=== PATIENT | female | born 1930 | race Caucasian/White ===

== ENCOUNTER 2017-05-24 11:35 | Observation (INO) | payer OTHER ==
[~2017-05-24] VITALS: Ht 152.4 cm; Wt 92.6 kg
[~2017-05-24 11:35] MED LIST: AMLODIPINE BESY10 MG PO; ASPIR 8181 M1 PO; BENADRYL25 MG PO; CALCIUM 500 MG1 EAC1 PO; CIPROFLOXACIN250 MG PO; COLACE100 MG PO; COUMADIN1 MG PO; CYCLOBENZAPRINE10 MG PO; DOK PLUS TABLE1 EACH PO; ECOTRIN325 MG PO; ELIQUIS2.5 MG PO; EXTRA STRENGTH500 M1 PO; FIBER LAXATIVE500 MG PO; FIBER500 MG PO; FISH OIL300 MG PO; HYDROCHLOROTH12.5 M3 PO; HYDROCHLOROTHIA25 MG PO; HYZAAR 100-21 TABLET PO; IRON325 M1 PO; LO-DOSE ASPIRIN81 M1 PO; LOSARTAN POTAS100 MG PO; MAGNESIUM OXID500 MG PO; ROPINIROLE HCL3 MG PO; SENNA-TIME S T1 EACH PO; SERTRALINE HCL25 MG PO; SIMVASTATIN80 MG PO; STOOL SOFTENER100 M1 PO; TRAMADOL HCL50 MG PO; VALIUM5 MG PO; VITAMIN D3; VITAMIN D31000 UNI2 PO; VITAMIN D400 UNIT PO; ZOCOR80 MG PO; ZOLOFT50 MG PO
[2017-05-24 12:30] LABS: MCH 30.1 PG (29.0-34.0); MCHC 32.4 G/DL (30.0-36.0); MCV 93.2 FL (83-99); PLATELET COUNT 200 K/uL (156-360); RBC DIS.WIDTH-SD 45.2 % (39-53); RED BLOOD COUNT 3.65 M/uL (3.80-5.20); WHITE BLOOD COUNT 9.1 K/uL (4.1-10.2)
[2017-05-24 12:43] LABS: CHLORIDE 103 mEq/L (99-109); POTASSIUM 4.9 mEq/L (3.7-5.4); SODIUM 138 mEq/L (136-147)
[2017-05-24 12:45] LABS: GLUCOSE 180 mg/dL (70-99)
[2017-05-24 12:46] LABS: ANION GAP 11 MEQ/L (2-14)
[2017-05-24 12:48] LABS: GFR ESTIMATE (CALCULATED) 41 mL/min/
[2017-05-24 12:49] LABS: UREA NITROGEN (BUN) 84 mg/dL (9-23)
[2017-05-24 13:22] LABS: PROTHROMBIN TIME 10.6 (9.2-11.2); PTT 23.8 (25-32)
[2017-05-24 13:26] LABS: TOTAL BILIRUBIN 0.6 mg/dL (0.0-1.0)
[2017-05-24 13:27] LABS: ALKALINE PHOSPHATASE 67 IU/L (3-129)
[2017-05-24 13:30] LABS: DIRECT BILIRUBIN 0.2 mg/dL (0.0-0.3)
[2017-05-24 13:31] LABS: LIPASE 12 U/L (1.0-51.0)
[2017-05-24] MEDS ORDERED: LITE COAT ASPI325 M1 PO (16:43)
[2017-05-24] MEDS ORDERED: AMLODIPINE BESY10 MG PO (16:43)
[2017-05-24] MEDS ORDERED: MELATIN3 MG PO (16:44)
[2017-05-24] MEDS ORDERED: VITAMIN D31000 UNI2 PO (16:44)
[2017-05-24] MEDS ORDERED: METAMUCIL POWD798 GM PO (16:45)
[2017-05-24] MEDS ORDERED: NITROSTAT0.4 MG SL (16:45)
[2017-05-24] MEDS ORDERED: FIBER LAXATIV0.52 GM PO (16:45)
[2017-05-24] MEDS ORDERED: FERROUS GLUCON324 MG PO (16:45)
[2017-05-24] MEDS ORDERED: CALCIUM 600 +1 EAC1 PO (16:46)
[2017-05-24] MEDS ORDERED: ROPINIROLE HCL0.5 MG PO (16:46)
[2017-05-24] MEDS ORDERED: BREO ELLIPTA I1 EACH IH (16:46)
[2017-05-24] MEDS ORDERED: COLACE100 MG PO (16:46)
[2017-05-24] MEDS ORDERED: TYLENOL REGULA325 MG PO (16:47)
[2017-05-24] MEDS ORDERED: STRESS-C WITH1 EAC1 PO (16:47)
[2017-05-24 18:09] VITALS: BP 147/70
[2017-05-24 19:45] VITALS: BP 125/58
[2017-05-24 19:50] LABS: HEMATOCRIT 28.7 % (36.0-46.0); MCV 92.9 FL (83-99)
[2017-05-25] VITALS: BP 113/52
[2017-05-25 03:52] VITALS: BP 129/59
[2017-05-25 07:14] VITALS: BP 144/65
[2017-05-25 07:16] LABS: CHLORIDE 110 mEq/L (99-109); SODIUM 141 mEq/L (136-147)
[2017-05-25 07:20] LABS: ANION GAP 7 MEQ/L (2-14); TOTAL BILIRUBIN 0.5 mg/dL (0.0-1.0)
[2017-05-25 07:21] LABS: GLUCOSE 106 mg/dL (70-99)
[2017-05-25 07:22] LABS: ALKALINE PHOSPHATASE 49 IU/L (3-129); GFR ESTIMATE (CALCULATED) 45 mL/min/
[2017-05-25 07:23] LABS: UREA NITROGEN (BUN) 60 mg/dL (9-23)
[2017-05-25 07:48] VITALS: BP 128/63
[2017-05-25 10:21] LABS: BASOPHIL COUNT 0.1 K/uL (0-0.1); EOSINOPHIL (%) 0.8 % (0-5); EOSINOPHIL COUNT 0.1 K/uL (0-0.3); HEMATOCRIT 27.2 % (36.0-46.0); IMMATURE GRANULOCYTE (%) 0.4 % (0.0-0.7); INSTRUMENT ABS NEUTROPHIL CT 5.2 K/uL; LYMPHOCYTE COUNT 1.7 K/uL (1.0-2.8); MCV 93.8 FL (83-99); MEAN PLAT.VOLUME 11.9 uM^3 (9.5-12.4); MONOCYTE (%) 6.2 % (3-12); MONOCYTE COUNT 0.5 K/uL (0-0.8); NEUTROPHIL (%) 68.9 % (45-76); NEUTROPHIL COUNT 5.2 K/uL (1.8-6.4); NRBC (%) 0.4 /100 WBC (0-0); PLATELET COUNT 160 K/uL (156-360); RBC DIS.WIDTH-CV 13.4 % (11.8-14.6); RBC DIS.WIDTH-SD 46.5 % (39-53); WHITE BLOOD COUNT 7.6 K/uL (4.1-10.2)
[2017-05-25 12:05] VITALS: BP 131/68
[2017-05-25 15:36] VITALS: BP 100/59
[2017-05-25] MEDS ORDERED: ZOFRAN ODT4 MG PO (16:06)
[2017-05-25] MEDS ORDERED: PROTONIX40 MG PO (16:06)
== END 2017-05-25 17:00 | disposition home or self-care (01) ==
LOC: EME 11:35 → EDOF 16:55 → 5WEST 17:50
PROVIDERS: Internal Medicine
DX: K92.2 Gastrointestinal hemorrhage, unspecified (principal); D50.0 Iron deficiency anemia secondary to blood loss (chronic); I10 Essential (primary) hypertension; G25.81 Restless legs syndrome; F32.9 Major depressive disorder, single episode, unspecified; Z79.82 Long term (current) use of aspirin; M19.90 Unspecified osteoarthritis, unspecified site; N28.9 Disorder of kidney and ureter, unspecified; Z96.653 Presence of artificial knee joint, bilateral; Z82.49 Family history of ischemic heart disease and other diseases of the circulatory system; Z82.3 Family history of stroke
CPT/HCPCS: 71010; 80048; 80053; 80076; 83690; 85014; 85018; 85025; 85027; 85610; 85730; 86900; 86901; 94640; 94640 76; 99281; 99284; C9113; G0378; J2405; J7030; J7042